=== PATIENT | female | born 1990 | race Caucasian/White ===

== ENCOUNTER 2016-08-19 04:40 | Emergency (ER) | payer OTHER ==
[2016-08-19 06:43] VITALS: BP 128/70
== END 2016-08-19 06:43 | disposition home or self-care (01) ==
LOC: ED 04:40
DX: S01.01XA Laceration without foreign body of scalp, initial encounter (principal); Y04.0XXA Assault by unarmed brawl or fight, initial encounter; Y93.89 Activity, other specified; Y92.89 Other specified places as the place of occurrence of the external cause; Y99.8 Other external cause status
CPT/HCPCS: 90715